=== PATIENT | female | born 1980 | race Caucasian/White ===

== ENCOUNTER → 2017-01-24 | Outpatient (CLI) | payer OTHER ==
--- NOTE | 2017-01-24 16:25 | REP ---
SCOLIOSIS SERIES: AP views of the thoracolumbar spine are performed. There is minimal curvature of the mid thoracic spine region, with the apex of the curvature at about the T7 level. The degree of curvature measured between the superior endplate of T4 to the superior endplate of T9 is only about 5 degrees. No deformities are seen of the vertebral bodies. Signed by Herb Torre MD 01/29/2017 05:08 P
== END ==
LOC: M RAD 14:46
PROVIDERS: ATTEND Nurse Practitioner Family
DX: M41.24 Other idiopathic scoliosis, thoracic region (principal)

== ENCOUNTER → 2017-01-24 | Outpatient (CLI) | payer OTHER, MEDICAID ==
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
== END ==
LOC: M PAIN 13:15
PROVIDERS: ATTEND Nurse Practitioner Family
DX: G89.29 Other chronic pain (principal); M46.1 Sacroiliitis, not elsewhere classified; M51.36 Other intervertebral disc degeneration, lumbar region; M54.16 Radiculopathy, lumbar region; K21.9 Gastro-esophageal reflux disease without esophagitis; F17.210 Nicotine dependence, cigarettes, uncomplicated; Z88.0 Allergy status to penicillin; Z79.899 Other long term (current) drug therapy

== ENCOUNTER → 2017-02-12 | Outpatient (REF) | payer OTHER, MEDICAID ==
[2017-02-12 12:50] LABS: ALBUMIN 3.8 GM/DL (3.2-5.2); ALBUMIN/GLOBULIN RATIO 1.12 (1.00-1.93); ALKALINE PHOSPHATASE 103 U/L (45-117); ALT/SGPT 31 U/L (12-78); ANION GAP 6 MEQ/L (8-16); AST/SGOT 21 U/L (7-37); BILIRUBIN,TOTAL 0.3 MG/DL (0.2-1.0); BLOOD UREA NITROGEN 7 MG/DL (7-18); CARBON DIOXIDE LEVEL 28 MEQ/L (21-32); CHLORIDE LEVEL 106 MEQ/L (98-107); CREATININE FOR GFR 0.63 MG/DL (0.55-1.02); GLOMERULAR FILTRATION RATE > 60.0 (>60); GLUCOSE, FASTING 74 MG/DL (70-105); POTASSIUM SERUM 4.3 MEQ/L (3.5-5.1); SODIUM LEVEL 140 MEQ/L (136-145); TOTAL PROTEIN 7.2 GM/DL (6.4-8.2)
== END ==
LOC: M SFHCPLAZ 08:28
PROVIDERS: ATTEND Family Medicine
DX: L29.9 Pruritus, unspecified (principal)

== ENCOUNTER → 2017-02-28 | Outpatient (CLI) | payer OTHER, MEDICAID | LOC: M PAIN 10:15 | DX: G89.29 Other chronic pain (principal); M46.1 Sacroiliitis, not elsewhere classified; M51.36 Other intervertebral disc degeneration, lumbar region; M54.16 Radiculopathy, lumbar region; K21.9 Gastro-esophageal reflux disease without esophagitis; K58.1 Irritable bowel syndrome with constipation; K44.9 Diaphragmatic hernia without obstruction or gangrene; G47.00 Insomnia, unspecified; J45.909 Unspecified asthma, uncomplicated; E55.9 Vitamin D deficiency, unspecified; Z87.440 Personal history of urinary (tract) infections; Z79.899 Other long term (current) drug therapy; F17.210 Nicotine dependence, cigarettes, uncomplicated; Z88.0 Allergy status to penicillin | CPT/HCPCS: G0463 ==

== ENCOUNTER → 2017-03-29 | Outpatient (CLI) | payer OTHER, MEDICAID | LOC: M PAIN 08:45 | DX: M46.1 Sacroiliitis, not elsewhere classified (principal); M51.36 Other intervertebral disc degeneration, lumbar region; M54.16 Radiculopathy, lumbar region; K21.9 Gastro-esophageal reflux disease without esophagitis; E55.9 Vitamin D deficiency, unspecified; F17.210 Nicotine dependence, cigarettes, uncomplicated; Z79.899 Other long term (current) drug therapy; Z88.0 Allergy status to penicillin | CPT/HCPCS: G0463 ==